=== PATIENT | male | born 1955 | race Caucasian/White ===

== ENCOUNTER 2018-06-10 16:18 | Inpatient (IN) ==
--- NOTE | 2018-06-10 18:11 | ED ---
HPI General Chief Complaint: Extremity Injury, Lower Stated Complaint: right leg fell complaint Time Seen by Provider: 06/10/18 17:13 Source: patient Mode of arrival: ambulatory (With crutches) Limitations: no limitations History of Present Illness HPI Narrative: 63-year-old male presents to the emergency department with complaint of right hip pain after he was knocked over by his dogs while playing with them today. He denies hitting his head or loss of consciousness. Denies paresthesias, loss of sensation to the affected extremity. Reports pain with flexion and abduction of the right hip. Has tried bearing weight in the pain from his hip radiates down to his knee. Took a Tylenol with codeine at approximately 4 PM with some relief of pain. Rates pain 4/10. Worse with bearing weight, flexion, abduction of the right hip. Denies significant past medical history. No known allergies. No primary care provider. Has no other medical complaints. No other modifying factors or associated signs and symptoms. Related Data Allergies Allergy/AdvReac Type Severity Reaction Status Date / Time No Known Allergies Allergy Verified 06/10/18 16:27 Review of Systems ROS: all other systems reviewed are negative [facility] Medical History Medical History High cholesterol (Acute) Vocal cord paralysis (Acute) Surgical History Surgical History History of ankle surgery (Acute) Social History Social History Substance History: No History of Abuse Second Hand Smoke Exposure: No Smoking Status: Never smoker How Often Do You Have a Drink Containing Alcohol: 2 to 3 times a week Recent Travel in [facility] within the Last 8 Weeks: No Recent Out of Country Travel within the Last 8 Weeks: No Immunization History Tetanus Immunization: <5 Years Exam Narrative Exam Narrative: GENERAL: Well-nourished, well-developed male patient, in no acute distress; afebrile, nontoxic-appearing SKIN: Warm and dry. HEAD: Atraumatic. Normocephalic. EYES: Pupils equal and round. No scleral icterus. No injection or drainage. ENT: Mucosa pink and moist. Airway patent. NECK: Trachea midline. CARDIOVASCULAR: Regular rate RESPIRATORY: No accessory muscle use. GASTROINTESTINAL: Flat. MUSCULOSKELETAL: Right hip with tenderness on palpation to the lateral aspect; without erythema, edema, or ecchymosis; with tenderness on abduction; no obvious deformity; no notable leg length discrepancy. Right knee is without erythema, edema, ecchymosis and without tenderness on palpation. Right thigh is without any obvious deformity; without erythema, edema, ecchymosis; no tenderness on palpation. Right lower extremity is supple and non-tense with 2+ pedal pulse and sensory intact and without erythema or edema. NEUROLOGICAL: Awake and alert. Oriented 3. No obvious cranial nerve deficits. Motor grossly within normal limits. Normal speech. PSYCHIATRIC: Appropriate mood and affect; insight and judgment normal. Course Initial Documented Vital Signs Temperature 98.6 F 06/10/18 16:26 Pulse Rate 73 06/10/18 16:26 Respiratory Rate 18 06/10/18 16:26 Blood Pressure 140/71 06/10/18 16:26 Pulse Oximetry 99 06/10/18 16:26 Last Documented Vital Signs Temperature 98.6 F 06/10/18 16:26 Pulse Rate 73 06/10/18 16:26 Respiratory Rate 18 06/10/18 16:26 Blood Pressure 140/71 06/10/18 16:26 Pulse Oximetry 99 06/10/18 16:26 Medical Decision Making MDM Narrative Medical decision making narrative: 63-year-old male with right hip injury after mechanical fall today. Right hip with AP pelvis x-ray ordered. [place] ordered. Right hip with AP pelvis concludes: femoral neck fracture. Call placed orthopedic surgeon. I spoke with Sd Basurto PA-C of Dr. Dodge and the patient will be admitted for surgery tomorrow. IV site obtained. Preop labs and chest x-ray Ordered. Call placed for patient admission. I spoke with Dr. Guerrero and report given for patient admission. Medical Screen Exam Complete: Yes Emergency Medical Condition: Yes Differential Diagnosis Differential Diagnosis: Hip contusion, hip fracture, pelvic fracture, fall Imaging Data Radiologist's impression: Hip X-Ray 06/10/18 17:37 CONCLUSION: Femoral neck fracture. Discharge Plan Discharge Disposition Patient Disposition: ED Admit(ED Internal Use Only) Discharge Condition Condition: Stable Discharge Order Discharge Orders: ED Use Only Admit Order (Routine); Ordered 06/10/18 Ordered By: Alyssa Wright Discharge Details Diagnosis: Fracture of femoral neck, right Physicians Team ED Provider: Flex Orosco ED Midlevel Provider: Alyssa Wright Primary Care Provider: UNKNOWN, Attending Provider: Alfredo Guerrero Status ED Status: With Doctor
--- NOTE | 2018-06-10 18:30 | XR ---
EXAM DATE: 06/10/2018 6:20 PM EST AGE/SEX: 63 years / Male INDICATIONS: Right hip pain CLINICAL DATA: This is the patient's initial encounter. Patient reports that signs and symptoms have been present for 1 day and indicates a pain score of 7/10. MEDICAL/SURGICAL HISTORY: None. None. COMPARISON: No prior exams available for comparison. FINDINGS: There is a complete femoral neck fracture with minimal angulation. CONCLUSION: Femoral neck fracture. Electronically signed by: Vinny Callaway MD Board Certified Radiologist 06/10/2018 6:29 PM EST
[2018-06-10] MEDS ORDERED: Temazepam 15 MG Capsule PO PRN (18:58)
[2018-06-10] MEDS ORDERED: Acetaminophen 325 MG Tablet PO PRN (18:58)
[2018-06-10] MEDS ORDERED: Bisacodyl 10 MG Supp RECTAL PRN (18:58)
[2018-06-10] MEDS ORDERED: Morphine Sulfate Inj 2 MG/ML Vial IV.PUSH PRN (19:02)
[2018-06-10 19:12] LABS: Baso # (Auto) 0.1 th/mm3 (0.0-0.2); Baso % (Auto) 0.6 % (0.0-2.0); Eos % (Auto) 0.2 % (0.0-4.0); Hematocrit 42.2 % (39.0-51.0); Hemoglobin 14.3 gm/dL (13.0-17.0); Lymph # (Auto) 1.1 th/mm3 (1.0-4.8); Lymph % (Auto) 9.7 % (9.0-44.0); Mean Corpuscular HGB Conc 33.9 % (32.0-36.0); Mean Corpuscular Hemoglobin 32.2 pg (27.0-34.0); Mean Corpuscular Volume 95.1 fL (80.0-100.0); Mean Platelet Volume 9.7 fL (7.0-11.0); Mono # (Auto) 0.5 th/mm3 (0.0-0.9); Mono % (Auto) 4.6 % (0.0-8.0); Neut # (Auto) 9.3 th/mm3 (1.8-7.7); Neut % (Auto) 84.9 % (16.0-70.0); Platelet Count 188 th/mm3 (150-450); Red Blood Count 4.43 mil/mm3 (4.50-5.90); Red Cell Distribution Width 13.4 % (11.6-17.2)
[2018-06-10 19:27] LABS: Activated Partial Thrombo Time 28.5 sec (23.4-31.7); Prothrombin Time 10.5 sec (9.8-11.6)
[2018-06-10 19:28] LABS: Albumin 3.8 g/dL (3.4-5.0); Anion Gap 6 meq/L (5-15); Aspartate Aminotransferase 23 U/L (15-37); Blood Urea Nitrogen 19 mg/dL (7-18); Calcium 8.8 mg/dL (8.5-10.1); Carbon Dioxide 27.5 meq/L (21.0-32.0); Chloride 103 meq/L (98-107); Glomerular Filtration Rate 69 mL/min (>89); Glucose,Random 89 mg/dL (74-106); Potassium 4.4 meq/L (3.5-5.1); Sodium 136 meq/L (136-145)
[2018-06-10 19:29] LABS: Alanine Aminotransferase 27 U/L (12-78)
[2018-06-10 19:31] LABS: Alkaline Phosphatase 76 U/L (45-117); Total Protein 7.7 g/dL (6.4-8.2)
--- NOTE | 2018-06-10 19:39 | XR ---
EXAM DATE: 06/10/2018 7:36 PM EST AGE/SEX: 63 years / Male INDICATIONS: Pre-operative for right hip surgery. CLINICAL DATA: This is the patient's initial encounter. Patient reports that signs and symptoms have been present for 1 day and indicates a pain score of 0/10. MEDICAL/SURGICAL HISTORY: None. None. COMPARISON: No prior exams available for comparison. FINDINGS: The lungs are clear without infiltrate, nodule, or mass. There is no appreciable pleural effusion for technique. Heart and mediastinum are unremarkable. CONCLUSION: No acute cardiopulmonary disease. Electronically signed by: Vinny Callaway MD Board Certified Radiologist 06/10/2018 7:37 PM EST
[2018-06-10] MEDS: Senna/Docusate Sodium 8.6/50 MG Tablet PO SCH (22:10)
[2018-06-10] MEDS: Sod Chloride 0.9% Inj 1,000 ML IV.CONT SCH (22:11)
[2018-06-10] MEDS ORDERED: Chlorhexidine Gluconate 2% 1 Pack (2 Cloths) TOPICAL ONE (22:49)
[2018-06-10] MEDS ORDERED: Sodium Chlor 0.9% Inj 500 ML IV.SIG SCH (23:00)
[2018-06-11] MEDS: Sod Chloride 0.9% Inj 1,000 ML IV.CONT SCH ×3 (04:00→16:18)
--- NOTE | 2018-06-11 06:44 | P.PNOP ---
Subjective Interval history: Fall yesterday when walking dog. Landed upon his right hip. He was unable to ambulate. X-rays show nondisplaced fracture to femoral neck fracture Physical Exam Vital signs: Vital Signs 06/10/18 16:26 06/10/18 21:04 06/11/18 00:02 Temperature 98.6 F 98.5 F 98.4 F Pulse Rate 73 68 79 Respiratory Rate 18 16 15 Blood Pressure 140/71 151/72 H 116/58 L Pulse Oximetry 99 96 96 06/11/18 04:19 Temperature 98.5 F Pulse Rate 68 Respiratory Rate 16 Blood Pressure 130/70 Pulse Oximetry 97 Intake & Output 06/10/18 06/10/18 06/11/18 06:59 18:59 06:59 Intake Total 480 / 480 Output Total 475 / 475 Balance 5 5 Weight 64.41 kg 64.7 kg Intake: Oral 480 / 480 Output: Urine 475 / 475 Other: Date of Last Bowel Movement 06/10/18 # Bowel Movements 0 Weight On Admission 64.41 kg Narrative: Bilateral upper extremity: Full range of motion neurovascular intact Left lower extremity: Full range of motion neurovascular intact Right lower extremity: To palpation of hip pain with movement. No pain with palpation of knee or ankle. Distally intact sensation with good capillary refills. Active dorsiflexion and plantar flexion of foot. Results - Labs CBC & Chem 7: 06/10/18 18:50 06/10/18 18:50 Laboratory Results - last 24 hr 06/10/18 06/10/18 06/10/18 18:50 18:50 18:50 WBC 11.0 RBC 4.43 L Hgb 14.3 Hct 42.2 MCV 95.1 MCH 32.2 MCHC 33.9 RDW 13.4 Plt Count 188 MPV 9.7 Neut % (Auto) 84.9 H Lymph % (Auto) 9.7 Sharkey % (Auto) 4.6 Eos % (Auto) 0.2 Baso % (Auto) 0.6 Neut # (Auto) 9.3 H Lymph # (Auto) 1.1 Sharkey # (Auto) 0.5 Eos # (Auto) 0.0 Baso # (Auto) 0.1 WBC Differential . Differential Comment Auto diff final PT 10.5 INR 1.0 APTT 28.5 Sodium 136 Potassium 4.4 Chloride 103 Carbon Dioxide 27.5 Anion Gap 6 BUN 19 H Creatinine 1.08 Estimated GFR 69 L Random Glucose 89 Calcium 8.8 Total Bilirubin 0.3 AST 23 ALT 27 Alkaline Phosphatase 76 Total Protein 7.7 Albumin 3.8 Blood Type Antibody Screen 06/10/18 18:50 WBC RBC Hgb Hct MCV MCH MCHC RDW Plt Count MPV Neut % (Auto) Lymph % (Auto) Sharkey % (Auto) Eos % (Auto) Baso % (Auto) Neut # (Auto) Lymph # (Auto) Sharkey # (Auto) Eos # (Auto) Baso # (Auto) WBC Differential Differential Comment PT INR APTT Sodium Potassium Chloride Carbon Dioxide Anion Gap BUN Creatinine Estimated GFR Random Glucose Calcium Total Bilirubin AST ALT Alkaline Phosphatase Total Protein Albumin Blood Type A Positive Antibody Screen Negative - Imaging Impressions Hip X-Ray 06/10/18 17:37 CONCLUSION: Femoral neck fracture. Chest X-Ray 06/10/18 18:43 CONCLUSION: No acute cardiopulmonary disease. Assessment and Plan - Assessment and Plan Minimally displaced right femoral neck fracture N.p.o. Signed consents Surgery this morning for planned percutaneous pinning of the right hip. If after x-rays are obtained in the operating room, the fracture is displaced we will proceed with right total hip arthroplasty. Risks and benefits were explained to the patient. Patient was seen by Dr. Dodge.
[2018-06-11 06:56] LABS: Baso % (Auto) 0.6 % (0.0-2.0); Eos # (Auto) 0.1 th/mm3 (0.0-0.4); Hematocrit 38.8 % (39.0-51.0); Hemoglobin 12.9 gm/dL (13.0-17.0); Lymph # (Auto) 1.2 th/mm3 (1.0-4.8); Lymph % (Auto) 16.3 % (9.0-44.0); Mean Corpuscular HGB Conc 33.3 % (32.0-36.0); Mean Corpuscular Hemoglobin 31.9 pg (27.0-34.0); Mean Corpuscular Volume 95.8 fL (80.0-100.0); Mean Platelet Volume 10.1 fL (7.0-11.0); Mono # (Auto) 0.7 th/mm3 (0.0-0.9); Mono % (Auto) 9.1 % (0.0-8.0); Neut # (Auto) 5.3 th/mm3 (1.8-7.7); Platelet Count 151 th/mm3 (150-450); Red Blood Count 4.05 mil/mm3 (4.50-5.90); Red Cell Distribution Width 13.1 % (11.6-17.2); White Blood Count 7.2 th/mm3 (4.0-11.0)
[2018-06-11] MEDS ORDERED: Tobramycin Sulfate 1,200 MG Vial (for ortho/sterile core) OTHER ONE (07:14)
[2018-06-11 07:17] LABS: Calcium 7.8 mg/dL (8.5-10.1); Carbon Dioxide 28.7 meq/L (21.0-32.0); Potassium 3.9 meq/L (3.5-5.1)
[2018-06-11] MEDS ORDERED: ceFAZolin 1 GM Premix Inj 1 GM/50 ML PIGGYBACK IV.SIG ONE (08:04)
[2018-06-11] MEDS ORDERED: Bupivacaine/Epinephrine Inj 0.25% 50 ML Vial ONE (08:23)
[2018-06-11] MEDS ORDERED: Morphine Inj 4 MG/ML Vial IV.PUSH PRN (08:41)
--- NOTE | 2018-06-11 08:46 | P.OP ---
- Preoperative Diagnosis (1) Fracture of femoral neck, right Date of procedure: 06/11/18 Procedure: Right hip pinning Anesthesia: GETA Surgeon: Omid Rodriguez MD Licensed Mortgage Loan Officer: Cl Elias PA-C Operation and Findings: Implants used: Synthes Plan of activity: TTWB x 4 weeks, then 50% weightbearing Patient was seen and evaluated preoperatively. The patient has significant hip pain from impacted right femoral neck fracture. I discussed with patient hip pinning versus total hip arthroplasty. Given the impaction of his fracture and relatively horizontal fracture plane, he would likely do well with hip pinning. The risk and benefits of surgery were discussed in depth with the patient to include bleeding infection nonunion malunion, avascular necrosis and need for hip replacement painful hardware as well as medical competitions including but not stroke heart attack and . He understands that there is a risk of nonunion or avascular necrosis which could necessitate future hip replacement surgery. Informed consent was obtained. Operative site was marked. Patient was brought to the operating room and placed on fracture table. IV sedation was administered by anesthesiologist. Timeout procedure was performed. Hip and leg were prepped with alcohol followed by Hibiclens and draped in the usual sterile fashion. IV antibiotics were given prior to incision. Procedure began with evaluation of fracture under fluoroscopy. The fracture was in excellent alignment. Fluoroscopy was used to confirm reduction. A three cm incision was along the lateral aspect of the proximal femur . Subcutaneous tissue was dissected bluntly. Three guidepins were placed through the lateral cortex of the proximal femur. Guide pins were placed in an inverted triangle position. Guide pins were advanced across the fracture site into the femoral head. Fluoroscopy confirmed appropriate guidepin placement. The screw lengths were measured. A cannulated drill was placed over each of the guide pins. Appropriate length cannulated screws were placed over the guidepins. Good compression was applied across the fracture. Final fluoroscopy revealed well aligned fracture with well-placed hardware. Incision was closed with 3-0 Vicryl and darek. Sterile dressings were applied. Patient was awakened and transferred to recovery room.
[2018-06-11] MEDS ORDERED: Post-op Orders (for Pharmacy) OTHER STA (08:55)
--- NOTE | 2018-06-11 08:56 | P.CONOP ---
[facility] Orthopedics Consult Note - [facility] Consult date: 06/11/18 Chief complaint: Right femoral neck fracture Narrative: Paul is a 63-year-old male. He was playing with his dogs. He states that his 80 pound boxer knocked him over. He landed on his right side. He had no dizziness, syncope, or loss of consciousness. He had immediate right hip pain. He had severe pain when he tried to stand and bear weight. He presented to the emergency room. X-rays revealed a minimally displaced right femoral neck fracture. He is currently awake and alert on the orthopedic floor. His only complaint is his right hip. Pain is improved with rest. Pain is worse with movement. He denies any hip pain prior to his fall. Review of Systems Patient denies fevers, chills, weight loss, headache, visual changes, hearing loss, chest pain, palpitations, shortness of breath, nausea, vomiting, no urinary changes, diarrhea, bowel changes, neck pain, back pain, skin rashes, weakness of extremities, easy bleeding, enlarged lymph nodes, numbness of extremities, anxiety, or depression. He complains of right hip pain Patient's social history, past medical history, and family history were reviewed on chart and with patient. [facility] - History History Provided By: Patient - Medical History Medical History: Medical History (Last Reviewed 06/11/18 @ 08:48 by Omid Rodriguez MD) High cholesterol Vocal cord paralysis - Surgical History Surgical History: Surgical History (Last Reviewed 06/11/18 @ 08:48 by Omid Rodriguez MD) History of ankle surgery - Family History Family History: Family History (Last Updated 06/11/18 @ 08:49 by Omid Rodriguez MD) Other Family history non-contributory - Social History I have reviewed the patient's Social History: Yes - Tobacco History Second Hand Smoke Exposure: No Smoking Status: Never smoker - Alcohol History How Often Do You Have a Drink Containing Alcohol: 2 to 4 times a month - Substance Use History Substance History: No History of Abuse - Travel History Recent Travel in the [place] Within the Last 8 Weeks: No Recent Travel Out of the Country Within the Last 8 Weeks: No - Immunization History Tetanus Immunization: <5 Years Hx Influenza Vaccine This Season: No Medications and Allergies Active Medications: Active Medications Acetaminophen (Tylenol) 650 mg PO Q4H PRN PRN Reason: Temp > 100.4 Hydrocodone Bitart/Acetaminophen ([place] 7.5/325) 1 tab PO Q4H PRN PRN Reason: pain 3-10 Last Admin: 06/10/18 22:10 Dose: 1 tab Al Hydroxide/Mg Hydroxide (Milk Of Magnesia Liq) 30 ml PO Q12H PRN PRN Reason: Mild Constipation Bisacodyl (Dulcolax Supp) 10 mg RECTAL DAILY PRN PRN Reason: SEVERE CONSITIPATION Calcium/Vitamin D (Oscal With D 250/125 Mg) 1 tab PO TID SIMBA Diphenhydramine HCl (Benadryl) 25 mg PO Q6H PRN PRN Reason: ITCHING Sodium Chloride (Ns Inj) 1,000 mls @ 100 mls/hr IV.CONT .Q10H [facility] Last Infusion: 06/11/18 06:31 Dose: 0 mls/hr Lactated Ringer's (Lr 1000 Ml Inj) 1,000 mls @ 30 mls/hr IV.SIG .Q24H SIMBA Stop: 06/11/18 22:59 Last Admin: 06/11/18 06:30 Dose: 30 mls/hr Sodium Chloride (Ns Inj) 500 mls @ 30 mls/hr IV.SIG .Q10H [facility] Last Admin: 06/10/18 23:54 Dose: Not Given Cefazolin Sodium 1,000 mg/ (Sodium Chloride) 100 mls @ 200 mls/hr IV.SIG Q8H SIMBA Stop: 06/12/18 01:29 Lactulose (Lactulose Liq) 30 ml PO DAILY PRN PRN Reason: SEVERE CONSITIPATION Miscellaneous Information (Misc Post-Op Orders (For Pharmacy)) 0 each OTHER STAT STA Stop: 06/11/18 08:42 Morphine Sulfate (Morphine Inj) 2 mg IV.PUSH Q3H PRN PRN Reason: breakthrough pain over 7 Morphine Sulfate (Morphine Inj) 3 mg IV.PUSH Q3H PRN PRN Reason: BREAKTHROUGH PAIN Ondansetron HCl (Zofran Inj) 4 mg IV.PUSH Q6H PRN PRN Reason: NAUSEA OR VOMITING Rivaroxaban (Xarelto) 10 mg PO Q24H [facility] Senna/Docusate Sodium (Opal-Colace) 1 tab PO BID [facility] Last Admin: 06/10/18 22:10 Dose: 1 tab Sennosides (Senokot) 17.2 mg PO Q12H PRN PRN Reason: Moderate Constipation Sodium Chloride (Ns Flush) 2 ml IV.FLUSH PRN PRN PRN Reason: FLUSH AFTER USING IV ACCESS Sodium Chloride (Ns Flush) 2 ml IV.FLUSH BID SIMBA Last Admin: 06/10/18 22:11 Dose: 2 ml Sodium Chloride (Ns Flush) 2 ml IV.FLUSH PRN PRN PRN Reason: FLUSH AFTER USING IV ACCESS Temazepam (Restoril) 15 mg PO HS PRN PRN Reason: INSOMNIA Vitamin D (Vitamin D3) 5,000 unit PO DAILY [facility] Allergies Allergy/AdvReac Type Severity Reaction Status Date / Time No Known Allergies Allergy Verified 06/10/18 16:27 Home Medications Medication Instructions Recorded Confirmed Type No Known Home Medications 06/10/18 06/10/18 History Exam Vital signs: Vital Signs 06/10/18 16:26 06/10/18 21:04 06/11/18 00:02 Temperature 98.6 F 98.5 F 98.4 F Pulse Rate 73 68 79 Respiratory Rate 18 16 15 Blood Pressure 140/71 151/72 H 116/58 L Pulse Oximetry 99 96 96 06/11/18 04:19 06/11/18 06:30 Temperature 98.5 F 98.1 F Pulse Rate 68 71 Respiratory Rate 16 18 Blood Pressure 130/70 157/72 H Pulse Oximetry 97 97 Intake & Output 06/10/18 06/11/18 06/11/18 18:59 06:59 18:59 Intake Total 480 / 480 50 / 50 Output Total 475 / 475 Balance 5 / 5 50 / 50 Weight 64.41 kg 64.7 kg Intake: IV 50 / 50 Ancef 1 GM Premix Inj 1 gm In 50 / 50 50 ml @ 0 mls/hr IV.SIG .STK- [facility] Rx#:[id number] Oral 480 / 480 Output: Urine 475 / 475 Other: Date of Last Bowel Movement 06/10/18 # Bowel Movements 0 Weight On Admission 64.41 kg Narrative: Paul is a pleasant 63-year-old male General: Awake and alert. No acute distress. Appears well-developed well- nourished Head: Normocephalic, atraumatic pupils are equal Neck: Soft, nontender, trachea midline Abdomen: Soft, nondistended Examination of right arm reveals no pain or deformity with shoulder, elbow, or wrist motion. Skin is intact. Radial pulse is palpable. Normal capillary refill in fingers. Sensation is intact in radial, ulnar, and median nerve distributions. Certified Medical Aide strength is +5. No lymphadenopathy noted. Examination of left arm reveals no pain or deformity with shoulder, elbow, or wrist motion. Skin is intact. Radial pulse is palpable. Normal capillary refill in fingers. Sensation is intact in radial, ulnar, and median nerve distributions. Certified Medical Aide strength is +5. No lymphadenopathy noted. Examination of left lower extremity reveals no pain or deformity with hip, knee , or ankle motion. Skin is intact. Sensation is intact in left foot. Dorsalis pedis pulse is palpable. Normal capillary refill and feet. Thigh and calf compartments are soft. No lymphadenopathy noted. +5 strength of ankle dorsiflexion and plantarflexion. Examination of right lower extremity reveals pain with any hip motion. He is tender to palpation around his proximal femur. He has no significant tenderness on his knee or ankle. Skin is intact. Sensation is intact in right foot. Dorsalis pedis pulse is palpable. Normal capillary refill and feet. Thigh and calf compartments are soft. No lymphadenopathy noted. +5 strength of ankle dorsiflexion and plantarflexion. Results - Labs Result Diagrams: 06/11/18 05:34 06/11/18 05:34 Labs: Laboratory Results - last 24 hr 06/10/18 06/10/18 06/10/18 18:50 18:50 18:50 WBC 11.0 RBC 4.43 L Hgb 14.3 Hct 42.2 MCV 95.1 MCH 32.2 MCHC 33.9 RDW 13.4 Plt Count 188 MPV 9.7 Neut % (Auto) 84.9 H Lymph % (Auto) 9.7 Isabela % (Auto) 4.6 Eos % (Auto) 0.2 Baso % (Auto) 0.6 Neut # (Auto) 9.3 H Lymph # (Auto) 1.1 Isabela # (Auto) 0.5 Eos # (Auto) 0.0 Baso # (Auto) 0.1 WBC Differential . Differential Comment Auto diff final PT 10.5 INR 1.0 APTT 28.5 Sodium 136 Potassium 4.4 Chloride 103 Carbon Dioxide 27.5 Anion Gap 6 BUN 19 H Creatinine 1.08 Estimated GFR 69 L Random Glucose 89 Calcium 8.8 Total Bilirubin 0.3 AST 23 ALT 27 Alkaline Phosphatase 76 Total Protein 7.7 Albumin 3.8 Blood Type Antibody Screen 06/10/18 06/11/18 06/11/18 18:50 05:34 05:34 WBC 7.2 RBC 4.05 L Hgb 12.9 L Hct 38.8 L MCV 95.8 MCH 31.9 MCHC 33.3 RDW 13.1 Plt Count 151 MPV 10.1 Neut % (Auto) 73.0 H Lymph % (Auto) 16.3 Isabela % (Auto) 9.1 H Eos % (Auto) 1.0 Baso % (Auto) 0.6 Neut # (Auto) 5.3 Lymph # (Auto) 1.2 Isabela # (Auto) 0.7 Eos # (Auto) 0.1 Baso # (Auto) 0.0 WBC Differential . Differential Comment Auto diff final PT INR APTT Sodium 139 Potassium 3.9 Chloride 105 Carbon Dioxide 28.7 Anion Gap 5 BUN 18 Creatinine 0.93 Estimated GFR 82 L Random Glucose 95 Calcium 7.8 L D Total Bilirubin AST ALT Alkaline Phosphatase Total Protein Albumin Blood Type A Positive Antibody Screen Negative - Diagnostic results Imaging: Impressions Hip X-Ray 06/10/18 17:37 CONCLUSION: Femoral neck fracture. Chest X-Ray 06/10/18 18:43 CONCLUSION: No acute cardiopulmonary disease. Assessment and Plan - Assessment and Plan Minimally displaced right femoral neck fracture N.p.o. Signed consents Surgery this morning for planned percutaneous pinning of the right hip. If after x-rays are obtained in the operating room, the fracture is displaced we will proceed with right total hip arthroplasty. Risks and benefits were explained to the patient. Patient was seen by Dr. Rodriguez.
[2018-06-11] MEDS ORDERED: fentaNYL Citrate Inj 100 MCG/2 ML Ampul ONE (09:01)
[2018-06-11] MEDS: Senna/Docusate Sodium 8.6/50 MG Tablet PO SCH ×2 (09:03→21:10)
[2018-06-11] MEDS ORDERED: *Meperidine Inj 25 MG/ML Vial PERIprocedural Use ONLY ONE (09:13)
[2018-06-11] MEDS ORDERED: *morphine SULFATE 4 MG/ML PERIprocedure ONLY ONE (09:30)
--- NOTE | 2018-06-11 10:44 | XR ---
EXAM DATE: 06/11/2018 10:41 AM EST AGE/SEX: 63 years / Male INDICATIONS: Right hip pinning. CLINICAL DATA: This is the patient's initial encounter. Patient reports that signs and symptoms have been present for 1 day and indicates a pain score of Nonresponsive. MEDICAL/SURGICAL HISTORY: None. None. COMPARISON: No prior exams available for comparison. FINDINGS: Three screws are noted within the right proximal femur status post ORIF. CONCLUSION: Status post ORIF of right proximal femur fracture with 3 screws in good position. Electronically signed by: Arturo Coe MD Board Certified Radiologist 06/11/2018 10:43 AM EST
--- NOTE | 2018-06-11 11:56 | P.HPIM ---
History of Present Illness Primary Care Physician: UNKNOWN History of Present Illness: DRAFT NOTE -- IN PROGRESS Inpatient Certification Inpatient Certification: I certify that the inpatient services were ordered in accordance with Medicare regulations governing the order. This includes certification that hospital inpatient services are reasonable and necessary and in the case of services not specified as inpatient-only under 42 CFR 419.22(n), that they are appropriately provided as inpatient services in accordance to with the 2-midnight benchmark under 43 CFR 412.3(e) Estimated Total Length of Stay (Days): 3 Plans for Post Hospital Care: SNF Medications and Allergies Allergies Allergy/AdvReac Type Severity Reaction Status Date / Time No Known Allergies Allergy Verified 06/10/18 16:27 Active Medications: Active Medications Acetaminophen (Tylenol) 650 mg PO Q4H PRN PRN Reason: Temp > 100.4 Hydrocodone Bitart/Acetaminophen (Mobile 7.5/325) 1 tab PO Q4H PRN PRN Reason: pain 3-10 Last Admin: 06/10/18 22:10 Dose: 1 tab Al Hydroxide/Mg Hydroxide (Milk Of Magnesia Liq) 30 ml PO Q12H PRN PRN Reason: Mild Constipation Bisacodyl (Dulcolax Supp) 10 mg RECTAL DAILY PRN PRN Reason: SEVERE CONSITIPATION Calcium/Vitamin D (Oscal With D 250/125 Mg) 1 tab PO TID [facility]BA Diphenhydramine HCl (Benadryl) 25 mg PO Q6H PRN PRN Reason: ITCHING Sodium Chloride (Ns Inj) 1,000 mls @ 100 mls/hr IV.CONT .Q10H SIMBA Last Infusion: 06/11/18 06:31 Dose: 0 mls/hr Lactated Ringer's (Lr 1000 Ml Inj) 1,000 mls @ 30 mls/hr IV.SIG .Q24H [facility]BA Stop: 06/11/18 22:59 Last Infusion: 06/11/18 10:00 Dose: Infused Sodium Chloride (Ns Inj) 500 mls @ 30 mls/hr IV.SIG .Q10H [facility]BA Last Admin: 06/10/18 23:54 Dose: Not Given Cefazolin Sodium/Dextrose (Ancef 1 Gm Premix Inj) 1 gm in 50 mls @ 100 mls/hr IV.SIG Q8H [facility] Stop: 06/12/18 08:29 Lactulose (Lactulose Liq) 30 ml PO DAILY PRN PRN Reason: SEVERE CONSITIPATION Miscellaneous Information ([facility]) 0 each OTHER UNSCH PRN PRN Reason: SEE LABEL COMMENTS Stop: 06/12/18 09:06 Morphine Sulfate (Morphine Inj) 3 mg IV.PUSH Q3H PRN PRN Reason: BREAKTHROUGH PAIN Ondansetron HCl (Zofran Inj) 4 mg IV.PUSH Q6H PRN PRN Reason: NAUSEA OR VOMITING Rivaroxaban (Xarelto) 10 mg PO Q24H [facility] Senna/Docusate Sodium (Opal-Colace) 1 tab PO BID [facility] Last Admin: 06/11/18 09:03 Dose: Not Given Sennosides (Senokot) 17.2 mg PO Q12H PRN PRN Reason: Moderate Constipation Sodium Chloride (Ns Flush) 2 ml IV.FLUSH BID [facility] Last Admin: 06/11/18 09:03 Dose: Not Given Sodium Chloride (Ns Flush) 2 ml IV.FLUSH PRN PRN PRN Reason: FLUSH AFTER USING IV ACCESS Temazepam (Restoril) 15 mg PO HS PRN PRN Reason: INSOMNIA Vitamin D (Vitamin D3) 5,000 unit PO DAILY [facility] Physical Exam Vital signs: Last Vital Signs Temp 97.7 F 06/11/18 11:47 Pulse 76 06/11/18 11:47 Resp 16 06/11/18 11:47 BP 123/71 06/11/18 11:47 Pulse Ox 95 06/11/18 11:47 Results Labs CBC & Chem 7: 06/11/18 05:34 06/11/18 05:34 Caprini VTE Risk Assessment Caprini Risk Assessment Model: Point Value = 1 Point Value = 2 Point Value = 3 Point Value = 5 Age 41-60 Minor surgery BMI > 25 kg/m2 Swollen legs Varicose veins or History of unexplained or recurrent spontaneous Oral contraceptives or hormone replacement Sepsis (< 1 month) Serious lung disease, including pneumonia (< 1 month) Abnormal pulmonary function Acute myocardial infarction Congestive heart failure (< 1 month) History of inflammatory bowel disease Medical patient at bed rest Age 61-74 Arthroscopic surgery Major open surgery (> 45 min) Laparoscopic surgery (> 45 min) Malignancy Confined to bed (> 72 hours) Immobilizing plaster cast Central venous access Age >= 75 History of VTE Family history of VTE Factor V Leiden Prothrombin [id number] Lupus anticoagulant Anticardiolipin antibodies Elevated serum homocysteine Heparin-induced thrombocytopenia Other congenital or acquired thrombophilia Stroke (< 1 month) Elective arthroplasty Hip, pelvis, or leg fracture Acute spinal cord injury (< 1 month) Prophylaxis Regimen: Total Risk Factor Score Risk Level Prophylaxis Regimen 0-1 Low Early ambulation 2 Moderate Order ONE of the following: *Sequential Compression Device (SCD) *Heparin 5000 units SQ BID 3-4 Higher Order ONE of the following medications: *Heparin 5000 units SQ TID *Enoxaparin/Lovenox 40 mg SQ daily (WT < 150 kg, CrCl > 30 mL/min) *Enoxaparin/Lovenox 30 mg SQ daily (WT < 150 kg, CrCl > 10-29 mL/min) *Enoxaparin/Lovenox 30 mg SQ BID (WT < 150 kg, CrCl > 30 mL/min) AND/OR *Sequential Compression Device (SCD) 5 or more Highest Order ONE of the following medications: *Heparin 5000 units SQ TID (Preferred with Epidurals) *Enoxaparin/Lovenox 40 mg SQ daily (WT < 150 kg, CrCl > 30 mL/min) *Enoxaparin/Lovenox 30 mg SQ daily (WT < 150 kg, CrCl > 10-29 mL/min) *Enoxaparin/Lovenox 30 mg SQ BID (WT < 150 kg, CrCl > 30 mL/min) AND *Sequential Compression Device (SCD) H&P: Quality VTE Deep Vein Thrombosis/Pulmonary Embolism Present on Admission: No
[2018-06-11] MEDS: Calcium/Vitamin D 250/125 MG Tablet PO SCH ×3 (12:24→17:04)
--- NOTE | 2018-06-11 13:50 | ECG ---
Date Performed: 06/11/2018 Time Performed: 06:51:21 PTAGE: 63 years EKG: Sinus rhythm NORMAL ECG Compared to PREVIOUS TRACING sinus rate is faster PREVIOUS TRACIN04/22/2014 09.03 DOCTOR: Hebert Mac Interpretating Date/Time 06/11/2018 13:49:25
[2018-06-11] MEDS: ceFAZolin 1 GM Premix Inj 1 GM/50 ML PIGGYBACK IV.SIG SCH (16:18)
[2018-06-11] MEDS ORDERED: Rivaroxaban 10 MG Tablet PO SCH (21:00)
[2018-06-12] MEDS: ceFAZolin 1 GM Premix Inj 1 GM/50 ML PIGGYBACK IV.SIG SCH ×2 (00:15→09:00)
[2018-06-12] MEDS: Sod Chloride 0.9% Inj 1,000 ML IV.CONT SCH ×2 (00:16→10:56)
--- NOTE | 2018-06-12 06:48 | P.PNOP ---
Subjective Interval history: POD 1 s/p perc pinning right hip diong well. out of bed on own. states using walker to get back and forth to bathroom. reports minimal pain. states he is ready to go home today Physical Exam Vital signs: Vital Signs 06/11/18 08:55 06/11/18 09:00 06/11/18 09:15 Temperature 97.7 F Pulse Rate 74 85 83 Respiratory Rate 20 14 12 Blood Pressure 129/61 155/75 H 150/78 H Pulse Oximetry 100 99 100 06/11/18 09:30 06/11/18 09:43 06/11/18 09:45 Temperature 98 F Pulse Rate 81 83 Respiratory Rate 13 14 Blood Pressure 142/61 H 123/60 Pulse Oximetry 98 98 97 06/11/18 10:16 06/11/18 11:47 06/11/18 15:17 Temperature 97.8 F 97.7 F 97.9 F Pulse Rate 77 76 77 Respiratory Rate 16 16 16 Blood Pressure 121/60 123/71 124/71 Pulse Oximetry 93 L 95 96 06/11/18 19:30 06/11/18 23:55 06/12/18 04:10 Temperature 97.9 F 97.7 F 98.0 F Pulse Rate 77 68 63 Respiratory Rate 16 17 17 Blood Pressure 134/68 124/62 112/56 L Pulse Oximetry 97 97 97 Intake & Output 06/11/18 06/11/18 06/12/18 06:59 18:59 06:59 Intake Total 480 / 480 3100 / 3100 2009 Output Total 475 / 475 20 800 / 800 Balance 5 / 5 3080 / 3080 1210 / 1210 Weight 64.7 kg 64.7 kg Intake: IV 2100 / 2100 1050 / 1050 NS Inj 1,000 ML @ 100 mls/hr IV 1000 / 1000 1000 / 1000 .CONT .Q10H [facility] Rx#:[id number] LR 1000 mL Inj 1,000 ML @ 30 1000 / 1000 mls/hr IV.SIG .Q24H [facility]BA Rx#: [id number] Ancef 1 GM Premix Inj 1 gm In 100 / 100 50 / 50 50 ml @ 100 mls/hr IV.SIG Q8H SIMBA Rx#:[id number] Oral 480 / 480 960 / 960 Other 1000 / 1000 Output: Urine 475 / 475 800 / 800 Estimated Blood Loss Other: # Voids 2 4 Date of Last Bowel Movement 06/10/18 06/10/18 # Bowel Movements 0 0 Weight On Admission 64.41 kg Narrative: RLE: dressings clean and dry. intact. NVI Results - Labs CBC & Chem 7: 06/11/18 05:34 06/11/18 05:34 Laboratory Results - last 24 hr 06/11/18 06/11/18 05:34 05:34 WBC 7.2 RBC 4.05 L Hgb 12.9 L Hct 38.8 L MCV 95.8 MCH 31.9 MCHC 33.3 RDW 13.1 Plt Count 151 MPV 10.1 Neut % (Auto) 73.0 H Lymph % (Auto) 16.3 [place] % (Auto) 9.1 H Eos % (Auto) 1.0 Baso % (Auto) 0.6 Neut # (Auto) 5.3 Lymph # (Auto) 1.2 [place] # (Auto) 0.7 Eos # (Auto) 0.1 Baso # (Auto) 0.0 WBC Differential . Differential Comment Auto diff final Sodium 139 Potassium 3.9 Chloride 105 Carbon Dioxide 28.7 Anion Gap 5 BUN 18 Creatinine 0.93 Estimated GFR 82 L Random Glucose 95 Calcium 7.8 L D - Imaging Impressions Hip X-Ray 06/11/18 00:00 CONCLUSION: Status post ORIF of right proximal femur fracture with 3 screws in good position. Assessment and Plan - Assessment and Plan 1) Right Femoral Neck Fracture s/p Perc Pinning - POD 1 -TTWB -daily dressing changes with xeroform/primapore -CM to arrange [facility] -DVT prophylaxis -plan for home today with [facility] if doing well with therapy -f/u with Jennifer or [facility] in 2 weeks [employer] (powering [employer])E Prescription Drug Monitoring Database has been queried and verified prior to prescribing the controlled substance. Acute pain exception. This patient has normal, predicted, physiological, and time limited response to an adverse mechanical stimulus associated with surgery, trauma, or acute illness as described in my notes. There is a lack of alternative treatment options other than to include the prescribed narcotic treatment for this condition.
--- NOTE | 2018-06-12 06:50 | P.DCO ---
- Physical Therapy Physical Therapy: Gait training Hip: Hip fracture, Protocol: Right Right Lower Extremity Weight Bearing: Toe touch weight bearing - Nursing Dressing changes: Daily dressing change, Xeroform, Coverderm/Primapore - Certification Need for Home Health services: I have seen patient Paul Vicente on 06/12/18. My clinical findings support the need for the requested home health care services because: Need for Home Health Services: Limited mobility due to disease progression Homebound Certification: I certify that my clinical findings support that this patient is homebound because: Homebound Certification: Post-op weakness
[2018-06-12 08:55] VITALS: RESP 18
[2018-06-12] MEDS: Calcium/Vitamin D 250/125 MG Tablet PO SCH ×2 (09:00→12:42)
[2018-06-12] MEDS: Senna/Docusate Sodium 8.6/50 MG Tablet PO SCH (09:00)
--- NOTE | 2018-06-12 09:00 | P.PNIM ---
Subjective Interval history: Pt doing well today His pain is controlled Pt has been cleared for discharge by Ortho for home with C. Physical Exam Vital signs: Last Vital Signs Temp 98 F 06/12/18 08:05 Pulse 59 L 06/12/18 08:05 Resp 18 06/12/18 08:05 BP 116/59 L 06/12/18 08:05 Pulse Ox 97 06/12/18 08:05 Narrative: General: NAD, AAOx3 Chest: CTA Cardiac: Regular Abd: +BS, soft ND/NT Ext: No edema Results Labs CBC & Chem 7: 06/11/18 05:34 06/11/18 05:34 Imaging Hip X-Ray 06/10/18 17:37 CONCLUSION: Femoral neck fracture. Chest X-Ray 06/10/18 18:43 CONCLUSION: No acute cardiopulmonary disease. Hip X-Ray 06/11/18 00:00 CONCLUSION: Status post ORIF of right proximal femur fracture with 3 screws in good position. Assessment and Plan Assessment (1) Fracture of femoral neck, right: Code(s): S72.001A - Fracture of unspecified part of neck of right femur, initial encounter for closed fracture Status: Acute Plan Right femoral neck fracture - Pt is a 63 y/o male with hx of hyperlipidemia. He was admitted to [facility] on 06[place]10 after he was playing with his dogs and they knocked him over and he landed on his right side. He had immediate right hip pain and was unable to stand and bear weight. - X-rays in the ED revealed a minimally displaced right femoral neck fracture. - Pt underwent right hip pinning on 06/11/[address] Dodge - Pt doing well post-operatively - Pain control per Ortho - Constipation precautions - DVT prophylaxis with Xarelto and ortho has written a prescription for this. - Pt is cleared for discharge by Ortho for today - Pain meds have been ordered by [facility] as well - Pt is planned for discharge home with HHC/PT - Followup with Dr. Dodge in 2 weeks - Followup with PCP in 1 week. Progress Note: Quality VTE Deep Vein Thrombosis/Pulmonary Embolism Present on Admission: No _ (1) Fracture of femoral neck, right Qualifiers: Encounter type: initial encounter Fracture healing: Fracture type: closed Open fracture type: Qualified Code(s): S72.001A - Fracture of unspecified part of neck of right femur, initial encounter for closed fracture
[2018-06-12 13:04] VITALS: BP 136/64; PULSE 68; TEMP 98.5; O2SAT 98
== END 2018-06-12 15:02 | disposition home health service (06) ==
LOC: NEPB 16:18 → NEDA 18:56 → N06 20:24
PROVIDERS: ADMIT Hospitalist; ATTEND Hospitalist